=== PATIENT | male | born 1950 | race Caucasian/White ===

== ENCOUNTER 2023-01-10 08:06 | Emergency (ER) | payer MEDICARE ==
[2023-01-10] MEDS ORDERED: PROVENTIL 2.5 MG/3 ML NEB IH ONE ×4 (08:22→14:27)
[2023-01-10] MEDS ORDERED: solu-MEDROL 125 MG, Sterile H2O 10 ml 2 ML IV ONE ×2 (08:22)
[2023-01-10] MEDS ORDERED: Zithromax 500 MG/ 250 ML NaCl Premix 500 MG/250 ML IVPB IV STA (08:25)
[2023-01-10] MEDS ORDERED: ROCEPHIN 2 Gm-D5w 50ML BAG** 2 G/50 ML IVPB IV STA (08:25)
--- NOTE | 2023-01-10 08:30 | ERPHSYRPT ---
- History of Present Illness Time Seen by Provider: 01/10/23 08:26 Source: patient Exam Limitations: no limitations Physician History: Patient is a 72-year-old male with a history of COPD presents to our ED via private vehicle for evaluation of shortness of breath. Patient usually experiences intermittent bouts of shortness of breath which essentially resolved spontaneously. However patient is here because of shortness of breath has been ongoing since earlier this morning. No nausea or vomiting. No fever. No trauma. Symptoms are progressive. Symptoms are moderate in intensity. No specific worsening improving factors. Patient is a former smoker. Patient s tates he quit working. Patient denies chest pain. He voices no other complaints or concerns at this time. Patient is hard of hearing Portions of this note were created with voice recognition technology. There may be grammatical, spelling, punctuation or sound alike errors Timing/Duration: today Activities at Onset: none Severity of Dyspnea-Max: moderate Severity of Dyspnea-Current: mild Possible Cause: occasional episodes Modifying Factors: Improves With: nothing Associated Symptoms: denies symptoms Allergies/Adverse Reactions: azithromycin Allergy (Verified 01/10/23 09:43) esomeprazole [From Nexium] Allergy (Verified 01/10/23 08:08) Home Medications: No Reportable Medications [No Reported Medications] 01/10/23 [History] Hx Tetanus, Diphtheria Vaccination/Date Given: No Hx Influenza Vaccination/Date Given: No Hx Pneumococcal Vaccination/Date Given: No - Review of Systems Constitutional: No Symptoms, No Fever, No Chills Eyes: No Symptoms Ears, Nose, & Throat: No Symptoms Respiratory: No Symptoms, No Cough, No Dyspnea Cardiac: No Symptoms, No Chest Pain, No Edema, No Syncope Abdominal/Gastrointestinal: No Symptoms, No Abdominal Pain, No Nausea, No Vomiting, No Diarrhea Genitourinary Symptoms: No Symptoms, No Dysuria Musculoskeletal: No Symptoms, No Back Pain, No Neck Pain Skin: No Symptoms, No Rash Neurological: No Symptoms, No Dizziness, No Focal Weakness, No Sensory Changes Psychological: No Symptoms Endocrine: No Symptoms Hematologic/Lymphatic: No Symptoms Immunological/Allergic: No Symptoms All Other Systems: Reviewed and Negative - Past Medical History Pertinent Past Medical History: Yes Neurological History: No Pertinent History ENT History: No Pertinent History Cardiac History: No Pertinent History Respiratory History: COPD Endocrine Medical History: No Pertinent History Musculoskeletal History: No Pertinent History GI Medical History: No Pertinent History History: No Pertinent History Psycho-Social History: No Pertinent History Male Reproductive Disorders: No Pertinent History Other Medical History: CHORNIC PAIN FROM ACCIDENTS - Past Surgical History Past Surgical History: No - Social History Smoking Status: Former smoker Exposure to second hand smoke: No Drug Use: none Patient Lives Alone: No - Nursing Vital Signs Nursing Vital Signs: Initial Vital Signs Pulse Rate 97 H 01/10/23 08:07 Respiratory Rate 15 01/10/23 08:07 Blood Pressure 142/91 01/10/23 08:07 O2 Sat by Pulse Oximetry 96 01/10/23 08:07 Pain Scale Pain Intensity 0 - Physical Exam General Appearance: no apparent distress, alert Eye Exam: PERRL/EOMI, eyes nml inspection Ears, Nose, Throat Exam: normal ENT inspection, normal pharynx, hearing decreased Neck Exam: normal inspection, supple Respiratory Exam: airway intact, diminished breath sounds, No accessory muscle use Cardiovascular/Chest Exam: normal heart sounds, regular rate/rhythm Abdominal/Gastrointestinal Exam: soft, No tenderness, No distention, No mass Extremity Exam: non-tender, normal range of motion, normal inspection, no calf tenderness, no pedal edema Neurologic Exam: alert, oriented x 3, cooperative, hospital staff pharmacist II-XII nml as tested, sensation nml, No motor deficits Skin Exam: normal color, warm, No dry Lymphatic Exam: No adenopathy SpO2 Interpretation: normal SpO2: 97 O2 Delivery: Room Air - Course Nursing assessment & vital signs reviewed: Yes EKG Interpreted by Me: Sinus Tach, NORMAL AXIS, NORMAL INTERVALS, NORMAL QRS (T wave inversions laterally.) - CT Exams Chest CT Interpretation: Tele-radiologist Report (Apical pleural and parenchymal thickening cannot exclude malignancy. Left lower lobe new 5 mm peripheral noncalcified nodule. Left renal cyst. Liver hemangioma) Ordered Tests: Active Orders 24 hr Category Date Time Status Ultrasound Coordinator STAT Care 01/10/23 08:23 Completed EKG-ER Only STAT Care 01/10/23 08:22 Completed IV Insertion STAT Care 01/10/23 08:22 Completed Pulse Oximetry (ED) STAT Care 01/10/23 08:22 Completed CHEST 1 VIEW (PORTABLE) Stat Exams 01/10/23 08:23 Completed CHEST WITH CONTRAST [CT] Stat Exams 01/10/23 09:35 Completed BLOOD CULTURE Stat Lab 01/10/23 08:40 Received CBC W DIFF Stat Lab 01/10/23 08:17 Completed CMP Stat Lab 01/10/23 08:17 Completed PROTIME WITH INR Stat Lab 01/10/23 10:15 Completed PTT Q4H Lab 01/10/23 14:14 Completed PTT Stat Lab 01/10/23 10:15 Completed TROPONIN Q4H Lab 01/10/23 08:17 Completed TROPONIN Q4H Lab 01/10/23 12:30 Completed Respiratory Therapy Assessment DAILY RT 01/10/23 08:45 Completed Medication Summary Discontinued Medications Generic Name Dose Route Start Last Admin Trade Name Freq PRN Reason Stop Dose Admin Albuterol Sulfate 2.5 mg 01/10/23 08:22 01/10/23 08:44 Albuterol Sulfate 2.5 Mg/3 Ml Neb IH 01/10/23 08:23 2.5 mg STAT ONE Administration Albuterol Sulfate Confirm 01/10/23 08:29 Albuterol Sulfate 2.5 Mg/3 Ml Neb Administered 01/10/23 08:30 Dose 2.5 mg IH .STK-MED ONE Albuterol Sulfate 2.5 mg 01/10/23 14:22 01/10/23 14:39 Albuterol Sulfate 2.5 Mg/3 Ml Neb IH 01/10/23 14:23 2.5 mg STAT ONE Administration Albuterol Sulfate Confirm 01/10/23 14:27 Albuterol Sulfate 2.5 Mg/3 Ml Neb Administered 01/10/23 14:28 Dose 2.5 mg IH .STK-MED ONE Aspirin 324 mg 01/10/23 09:59 01/10/23 10:02 Aspirin 81 Mg Tab.Chew PO 01/10/23 10:00 324 mg STAT ONE Administration Methylprednisolone Sodium 0 mg 01/10/23 08:22 01/10/23 08:55 Succinate 125 mg/ Sterile IV 01/10/23 08:23 125 mg Water 2 ml STAT ONE Administration Diphenhydramine HCl 50 mg 01/10/23 09:42 01/10/23 09:43 Diphenhydramine Hcl 50 Mg/Ml Vial IV 01/10/23 09:43 50 mg STAT ONE Administration Diphenhydramine HCl Confirm 01/10/23 09:43 Diphenhydramine Hcl 50 Mg/Ml Vial Administered 01/10/23 09:44 Dose 50 mg .ROUTE .STK-MED ONE Heparin Sodium (Beef Lung) 3,700 unit 01/10/23 10:00 01/10/23 10:10 Heparin 5000 Units/0.5 Ml 5,000 Unit/0.5 Ml Syr 60 unit/kg (3700 unit) 01/10/23 10:01 3,700 unit IV Administration STAT STA Heparin Sodium (Beef Lung) Confirm 01/10/23 10:09 Heparin 5000 Units/0.5 Ml 5,000 Unit/0.5 Ml Syr Administered 01/10/23 10:10 Dose 5,000 unit .ROUTE .STK-MED ONE Ceftriaxone Sodium/Dextrose 2 g in 50 mls @ 100 mls/hr 01/10/23 08:25 01/10/23 09:43 Rocephin 2 Gm-D5w 50ml Bag IV 01/10/23 08:54 Infused STAT STA Infusion Azithromycin 500 mg in 250 mls @ 250 mls/hr 01/10/23 08:25 01/10/23 11:00 Zithromax 500 Mg/ 250 Ml Nacl Premix IV 01/10/23 09:24 Infused STAT STA Infusion Ceftriaxone Sodium/Dextrose Confirm 01/10/23 08:54 Rocephin 2 Gm-D5w 50ml Bag Administered 01/10/23 08:55 Dose 2 g in 50 mls @ ud IV .STK-MED ONE Azithromycin Confirm 01/10/23 09:15 Zithromax 500 Mg/ 250 Ml Nacl Premix Administered 01/10/23 09:16 Dose 500 mg in 250 mls @ ud IV .STK-MED ONE Heparin Sodium/Dextrose 25,000 units in 250 mls @ 7.392 mls/hr 01/10/23 10:00 01/10/23 10:11 Heparin 25,000 Units/D5w: Use Order Set Varun IV 02/09/23 09:59 12 units/kg/hr .Q24H WARREN 7.392 mls/hr Administration Protocol 12 UNITS/KG/HR Heparin Sodium/Dextrose Confirm 01/10/23 10:09 Heparin 25,000 Units/D5w: Use Order Set Varun Administered 01/10/23 10:10 Dose 25,000 units in 250 mls @ ud IV .STK-MED ONE Methylprednisolone Sodium Succinate Confirm 01/10/23 08:54 Methylprednis Sod Succ 125 Mg/2 Ml Vial Administered 01/10/23 08:55 Dose 125 mg .ROUTE .Lingua.lyK-MED ONE Sterile Water Confirm 01/10/23 08:54 Water For Injection,Sterile 10 Ml Vial Administered 01/10/23 08:55 Dose 10 ml IJ .STK-MED ONE Lab/Rad Data: Laboratory Result Diagrams 01/10/23 08:17 01/10/23 08:17 Laboratory Results 01/10/23 01/10/23 01/10/23 Range/Units 14:14 12:30 10:15 WBC (4.0-10.5) x10^3/uL RBC (4.1-5.6) x10^6/uL Hgb (12.5-18.0) g/dL Hct (42-50) % MCV (78-100) fL MCH (26-32) pg MCHC (32-36) g/dL RDW (11.5-14.0) % Plt Count (150-450) x10^3/uL MPV (7.5-11.0) fL Gran % (36.0-66.0) % Immature Gran % (Auto) (0.00-0.4) % Nucleat RBC Rel Count (0.00-0.1) % Eos # (Auto) (0-0.5) x10^3/uL Immature Gran # (Auto) (0.00-0.03) x10^3u/L Absolute Lymphs (auto) (1.0-4.6) x10^3/uL Absolute Monos (auto) (0.0-1.3) x10^3/uL Absolute Nucleated RBC (0.00-0.01) x10^3u/L Lymphocytes % (24.0-44.0) % Monocytes % (0.0-12.0) % Eosinophils % (0.00-5.0) % Basophils % (0.0-0.4) % Absolute Granulocytes (1.4-6.9) x10^3/uL Basophils # (0-0.4) x10^3/uL PT 10.7 (9.4-12.5) SECONDS INR 0.98 (0.8-3.0) APTT 43.1 H 26.9 (25.1-36.5) SECONDS Sodium (137-145) mmol/L Potassium (3.5-5.1) mmol/L Chloride (98-107) mmol/L Carbon Dioxide (22-30) mmol/L Anion Gap (5-15) MEQ/L BUN (9-20) mg/dL Creatinine (0.66-1.25) mg/dL Estimated GFR ML/MIN Glucose (74-106) mg/dL Calcium (8.4-10.2) mg/dL Total Bilirubin (0.2-1.3) mg/dL AST (17-59) U/L ALT (0-50) U/L Alkaline Phosphatase (38-126) U/L Troponin I 0.050 H* (0.000-0.034) ng/mL Serum Total Protein (6.3-8.2) g/dL Albumin (3.5-5.0) g/dL Influenza Type A Ag (NEGATIVE) Influenza Type B Ag (NEGATIVE) RSV (PCR) (NEGATIVE) SARS-CoV-2 (PCR) (NEGATIVE) 01/10/23 01/10/23 01/10/23 Range/Units 08:35 08:17 08:17 WBC (4.0-10.5) x10^3/uL RBC (4.1-5.6) x10^6/uL Hgb (12.5-18.0) g/dL Hct (42-50) % MCV (78-100) fL MCH (26-32) pg MCHC (32-36) g/dL RDW (11.5-14.0) % Plt Count (150-450) x10^3/uL MPV (7.5-11.0) fL Gran % (36.0-66.0) % Immature Gran % (Auto) (0.00-0.4) % Nucleat RBC Rel Count (0.00-0.1) % Eos # (Auto) (0-0.5) x10^3/uL Immature Gran # (Auto) (0.00-0.03) x10^3u/L Absolute Lymphs (auto) (1.0-4.6) x10^3/uL Absolute Monos (auto) (0.0-1.3) x10^3/uL Absolute Nucleated RBC (0.00-0.01) x10^3u/L Lymphocytes % (24.0-44.0) % Monocytes % (0.0-12.0) % Eosinophils % (0.00-5.0) % Basophils % (0.0-0.4) % Absolute Granulocytes (1.4-6.9) x10^3/uL Basophils # (0-0.4) x10^3/uL PT (9.4-12.5) SECONDS INR (0.8-3.0) APTT (25.1-36.5) SECONDS Sodium 141 (137-145) mmol/L Potassium 4.8 (3.5-5.1) mmol/L Chloride 107 (98-107) mmol/L Carbon Dioxide 16 L* (22-30) mmol/L Anion Gap 23.7 H (5-15) MEQ/L BUN 27 H (9-20) mg/dL Creatinine 0.98 (0.66-1.25) mg/dL Estimated GFR > 60.0 ML/MIN Glucose 108 H (74-106) mg/dL Calcium 9.7 (8.4-10.2) mg/dL Total Bilirubin 0.90 (0.2-1.3) mg/dL AST 42 (17-59) U/L ALT 31 (0-50) U/L Alkaline Phosphatase 137 H (38-126) U/L Troponin I 0.066 H* (0.000-0.034) ng/mL Serum Total Protein 9.2 H (6.3-8.2) g/dL Albumin 4.8 (3.5-5.0) g/dL Influenza Type A Ag NEGATIVE (NEGATIVE) Influenza Type B Ag NEGATIVE (NEGATIVE) RSV (PCR) NEGATIVE (NEGATIVE) SARS-CoV-2 (PCR) NEGATIVE (NEGATIVE) 01/10/23 Range/Units 08:17 WBC 9.0 (4.0-10.5) x10^3/uL RBC 4.95 (4.1-5.6) x10^6/uL Hgb 15.0 (12.5-18.0) g/dL Hct 45.8 (42-50) % MCV 92.5 (78-100) fL MCH 30.3 (26-32) pg MCHC 32.8 (32-36) g/dL RDW 13.3 (11.5-14.0) % Plt Count 254 (150-450) x10^3/uL MPV 11.4 H (7.5-11.0) fL Gran % 68.6 H (36.0-66.0) % Immature Gran % (Auto) 0.2 (0.00-0.4) % Nucleat RBC Rel Count 0.0 (0.00-0.1) % Eos # (Auto) 0.23 (0-0.5) x10^3/uL Immature Gran # (Auto) 0.02 (0.00-0.03) x10^3u/L Absolute Lymphs (auto) 1.74 (1.0-4.6) x10^3/uL Absolute Monos (auto) 0.65 (0.0-1.3) x10^3/uL Absolute Nucleated RBC 0.00 (0.00-0.01) x10^3u/L Lymphocytes % 19.4 L (24.0-44.0) % Monocytes % 7.2 (0.0-12.0) % Eosinophils % 2.6 (0.00-5.0) % Basophils % 2.0 (0.0-0.4) % Absolute Granulocytes 6.17 (1.4-6.9) x10^3/uL Basophils # 0.18 (0-0.4) x10^3/uL PT (9.4-12.5) SECONDS INR (0.8-3.0) APTT (25.1-36.5) SECONDS Sodium (137-145) mmol/L Potassium (3.5-5.1) mmol/L Chloride (98-107) mmol/L Carbon Dioxide (22-30) mmol/L Anion Gap (5-15) MEQ/L BUN (9-20) mg/dL Creatinine (0.66-1.25) mg/dL Estimated GFR ML/MIN Glucose (74-106) mg/dL Calcium (8.4-10.2) mg/dL Total Bilirubin (0.2-1.3) mg/dL AST (17-59) U/L ALT (0-50) U/L Alkaline Phosphatase (38-126) U/L Troponin I (0.000-0.034) ng/mL Serum Total Protein (6.3-8.2) g/dL Albumin (3.5-5.0) g/dL Influenza Type A Ag (NEGATIVE) Influenza Type B Ag (NEGATIVE) RSV (PCR) (NEGATIVE) SARS-CoV-2 (PCR) (NEGATIVE) - Progress Progress: improved Air Movement: good Progress Note: Case discussed with Dr. Davis at 1:[address] Davis ER physician at [facility] accepts transfer. Plan of care discussed with patient. He agrees to transfer to [facility] for further evaluation and treatment. 01/10/23 13:49 72-year-old male presents to our ED with shortness of breath. CBC within normal limits. CMP reveals a metabolic acidosis. Troponin elevated. Heparin initiated. Patient received albuterol ceftriaxone azithromycin and methylprednisolone. Patient states his throat felt as though it was closing during the azithromycin infusion. Azithromycin discontinued patient received B enadryl. Azithromycin included as an allergy in patient's medical occasion profile. Patient transferred to [facility]. Complexity of problem addressed is moderate, acute with systemic illness. Critical care time approximately 2 hours. Troponin elevated. Heparin drip initiated. Patient is short of breath. Immediate action required to prevent further deterioration. Complex of data reviewed and analyzed is moderate. Test ordered. Test reviewed and analyzed by Dr. Sampson. Management discussed with receiving physician Dr. Davis. Risk of complication and or risk of morbidity/mortality of patient management is high. Patient will require hospitalization for further evaluation and treatment. Nebulizer treatment administered. Patient transferred to [facility] in stable condition. 01/11/23 03:06 Blood Culture(s) Obtained: Yes Antibiotics given: Yes Counseled pt/family regarding: lab results, diagnosis, rad results - Departure Departure Disposition: Transfer Clinical Impression: Shortness of breath, Elevated troponin, ACS (acute coronary syndrome), NSTEMI (non-ST elevated myocardial infarction), Metabolic acidosis, Lung nodule, Liver hemangioma, Renal cyst Condition: Stable Critical Care Time: Yes Critical Care Time(excluding separately billable procedures): Critical 105-134 mins Referrals: ELIZABETH FELTON [CONSULTING PHYSICIAN] - Follow up/PCP as directed
[2023-01-10 08:52] LABS: Absolute Neutrophil Ct (ANC) 6.17 x10^3/uL (1.4-6.9); Basophil (Absolute #) 0.18 x10^3/uL (0-0.4); Eosinophil % 2.6 % (0.00-5.0); Eosinophil (Absolute #) 0.23 x10^3/uL (0-0.5); Hematocrit 45.8 % (42-50); IMMATURE GRAN # 0.02 x10^3u/L (0.00-0.03); IMMATURE GRAN % 0.2 % (0.00-0.4); Lymphocyte (Absolute #) 1.74 x10^3/uL (1.0-4.6); Lymphocytes % 19.4 % (24.0-44.0); Mean Cell Volume 92.5 fL (78-100); Mean Corpuscular Hemoglobin 30.3 pg (26-32); Mean Corpuscular Hgb Concent. 32.8 g/dL (32-36); Mean Platelet Volume 11.4 fL (7.5-11.0); Monocyte (Absolute #) 0.65 x10^3/uL (0.0-1.3); Monocytes % 7.2 % (0.0-12.0); Neutrophil % 68.6 % (36.0-66.0); Platelet Count 254 x10^3/uL (150-450); Red Blood Count 4.95 x10^6/uL (4.1-5.6); Red Cell Distribution Width 13.3 % (11.5-14.0)
[2023-01-10] MEDS ORDERED: solu-MEDROL ONE (08:54)
[2023-01-10] MEDS ORDERED: ROCEPHIN 2 Gm-D5w 50ML BAG** 2 G/50 ML IVPB IV ONE (08:54)
[2023-01-10] MEDS ORDERED: Sterile H2O 10 ml IJ ONE (08:54)
--- NOTE | 2023-01-10 09:01 | XRAY ---
Indication: Short of breath. Comparison: October 07, 2014 Portable chest demonstrates new left upper lobe subsegmental atelectasis with left lung volume loss. Remaining heart and lungs unremarkable. Bony thorax intact with osteopenia and mild levoscoliosis.
[2023-01-10 09:08] LABS: ALBUMIN 4.8 g/dL (3.5-5.0); ALKALINE PHOSPHATASE 137 U/L (38-126); ANION GAP 23.7 MEQ/L (5-15); BLOOD UREA NITROGEN 27 mg/dL (9-20); CHLORIDE 107 mmol/L (98-107); Calcium 9.7 mg/dL (8.4-10.2); Creatinine 1 0.98 mg/dL (0.66-1.25); EST GLOMERULAR FILTRATION RATE > 60.0 ML/MIN; Glucose 108 mg/dL (74-106); Potassium 4.8 mmol/L (3.5-5.1); SGOT/AST 42 U/L (17-59); SGPT/ALT 31 U/L (0-50); SODIUM 141 mmol/L (137-145); Total Protein 9.2 g/dL (6.3-8.2)
[2023-01-10 09:10] LABS: Carbon Dioxide 16 mmol/L (22-30)
[2023-01-10] MEDS ORDERED: Zithromax 500 MG/ 250 ML NaCl Premix 500 MG/250 ML IVPB IV ONE (09:15)
[2023-01-10 09:29] LABS: INFLUENZA A NEGATIVE (NEGATIVE); INFLUENZA B NEGATIVE (NEGATIVE); RESPIRATORY SYNCTIAL VIRUS NEGATIVE (NEGATIVE); SARS-CoV-2 Xpert Express NEGATIVE (NEGATIVE)
[2023-01-10] MEDS ORDERED: BENADRYL 50 MG/ML IV ONE (09:42)
[2023-01-10] MEDS ORDERED: BENADRYL 50 MG/ML ONE (09:43)
[2023-01-10] MEDS ORDERED: BABY ASPIRIN 81 MG CHEW PO ONE (09:59)
[2023-01-10] MEDS ORDERED: HEPARIN 5000 UNITS/0.5 ML (HIGH RISK MED) IV STA (10:00)
[2023-01-10] MEDS ORDERED: Heparin 25,000 units/D5W: USE ORDER SET PROTO 25,000 UNITS/250 ML BAG IV SCH (10:00)
[2023-01-10] MEDS ORDERED: Heparin 25,000 units/D5W: USE ORDER SET PROTO 25,000 UNITS/250 ML BAG IV ONE (10:09)
[2023-01-10] MEDS ORDERED: HEPARIN 5000 UNITS/0.5 ML (HIGH RISK MED) ONE (10:09)
[2023-01-10 10:36] LABS: INR 0.98 (0.8-3.0); PROTIME 10.7 SECONDS (9.4-12.5); PTT 26.9 SECONDS (25.1-36.5)
--- NOTE | 2023-01-10 11:48 | XRAY ---
Indication: Short of breath. Pulmonary embolus. Multiple contiguous axial images obtained through the chest using 80 cc Isovue 370 contrast and PE protocol. Comparison: October 07, 2014 Clinical opacification of the pulmonary arteries to include the lobar and segmental branches. No pulmonary embolus. Heart is not enlarged. Aorta is normal in course and caliber. No pathologic mediastinal/hilar lymphadenopathy. Lungs again hyperinflated new moderate left apical pleural parenchymal thickening/scarring. Underlying malignancy not completely excluded. Right lower lobe demonstrates new 5 mm peripheral noncalcified nodule. Elsewhere minimal dependent atelectasis. No effusion or pneumothorax. Bony thorax intact with minimal degenerative changes throughout the spine. Limited upper abdomen demonstrates slightly enlarged 1.5 cm right upper pole renal cyst. Also incidental 2 cm right lobe hepatic hemangioma. Impression: 1. Negative pulmonary embolus. 2. New left apical pleural parenchymal thickening/scarring. Underlying malignancy completely excluded. 3. New indeterminant right lower lobe noncalcified micronodule. More recent outside comparison studies recommended if available. If not, consider follow-up per Fleischner guidelines. 4. Incidental hepatic hemangioma and right renal cyst.
[2023-01-10 14:09] VITALS: BP 135/73
[2023-01-10 14:41] VITALS: PULSE 90
[2023-01-11 03:11] VITALS: O2SAT 97
== END 2023-01-10 14:30 | disposition short-term general hospital (02) ==
LOC: ED 08:06
DX: I21.4 Non-ST elevation (NSTEMI) myocardial infarction (principal); I24.9 Acute ischemic heart disease, unspecified; R06.02 Shortness of breath; R77.8 Other specified abnormalities of plasma proteins; E87.20 Acidosis, unspecified; R91.1 Solitary pulmonary nodule; D18.09 Hemangioma of other sites; N28.1 Cyst of kidney, acquired; J44.1 Chronic obstructive pulmonary disease with (acute) exacerbation; Z20.828 Contact with and (suspected) exposure to other viral communicable diseases
CPT/HCPCS: 0241U; 36000; 36415; 71045; 71260; 80053; 84484; 85025; 85610; 85730; 87040; 93005; 93041; 94640; 94760; 96360; 96365; 96367; 96374; 96375; 99285; J0456; J0696; J1200; J1644; J2930; J7609; A9270-GY